=== PATIENT | female | born 1945 | race Caucasian/White ===

== ENCOUNTER 2018-04-02 12:04 | Day surgery (SDC) | payer MEDICARE ==
[~2018-04-02] VITALS: Ht 167.6 cm; Wt 63.7 kg
[~2018-04-02 12:04] MED LIST: DEXAMETHASONE SOD PHOS 4 MG/ML VIAL IV ONE; GLYCOPYRROLATE 1 MG/5 ML SYRINGE IV PUSH ONE; KETOROLAC TROMETHAMINE 30 MG/ML (IVP) VIAL IV PUSH ONE; LACTATED RINGER'S 1000 ML INJ 1,000 ML IV ONE; LIDOCAINE HCL 1% PF 5 ML SYRINGE OTHER ONE; METO25 PO; NEOSTIGMINE 5 MG/5 ML SYRINGE IV PUSH ONE; ONDANSETRON HCL 4 MG/2 ML VIAL IV ONE; PHENYLEPH/NS 1000 MCG/10 ML SYR IV ONE; PROPOFOL 200 MG/20 ML AMP IV ONE; ROCURONIUM INJ 50 MG/5 ML SYRINGE IV PUSH ONE; ST JTAB PO; ePHEDrine/NS 25 MG/5 ML SYRINGE IV ONE
[2018-04-02] MEDS ORDERED: POVIDONE IODINE 5% (ANTISEPSIS KIT) 4 APPLICATIONS EACH NARE PRN (12:45)
[2018-04-02] MEDS ORDERED: ceFAZolin 1,000 MG/NS 100 ML IV SCH ×2 (12:45)
[2018-04-02] MEDS ORDERED: LACTATED RINGER'S 1000 ML IV PRN (12:45)
[2018-04-02] MEDS ORDERED: ACETAMINOPHEN 1000 MG/100 ML 100 ML IV SCH (12:45)
[2018-04-02] MEDS ORDERED: METOPROLOL TARTRATE 25 MG TAB PO PRN (12:45)
[2018-04-02] MEDS ORDERED: CHLORHEXIDINE GLUCONATE 2 % 1 PACK (2 CLOTHS) TOPICAL PRN (12:45)
[2018-04-02] MEDS ORDERED: VANCOMYCIN 1 GM/200 ML PREMIX IV SCH (12:45)
[2018-04-02] MEDS ORDERED: SODIUM CHLORID 0.9% 500 ML IV PRN (12:45)
--- NOTE | 2018-04-02 13:22 | EKG ---
Date Performed: 04/02/2018 Time Performed: 12:43:16 PTAGE: 72 years EKG: SINUS BRADYCARDIA WITH MARKED SINUS ARRHYTHMIA LEFT ANTERIOR FASCICULAR BLOCK ABNORMAL ECG NO PREVIOUS TRACING DOCTOR: Sebastian Che Interpretating Date/Time 04/02/2018 13:22:13
[2018-04-02] MEDS ORDERED: BUPIVACAINE/EPINEPHRINE 0.25% PF 10 ML VIAL ONE (13:26)
[2018-04-02] MEDS ORDERED: URSO1TAB6 (13:32)
[2018-04-02 13:49] LABS: AUTOMATED NEUTROPHIL # 2.3 TH/MM3 (1.8-7.7); BASOPHIL % 0.9 % (0.0-2.0); EOSINOPHIL # 0.1 TH/MM3 (0-0.4); EOSINOPHIL % 1.8 % (0.0-4.0); HEMATOCRIT 39.3 % (35.0-46.0); HEMOGLOBIN 13.5 GM/DL (11.6-15.3); LYMPH % 34.2 % (9.0-44.0); LYMPHOCYTE # 1.6 TH/MM3 (1.0-4.8); MEAN CELL VOLUME 89.6 FL (80.0-100.0); MEAN CORPUSCULAR HEMOGLOBIN 30.7 PG (27.0-34.0); MEAN CORPUSCULAR HGB CONC 34.3 % (32.0-36.0); MEAN PLATELET VOLUME 8.6 FL (7.0-11.0); MONO % 12.2 % (0.0-8.0); MONOCYTE # 0.6 TH/MM3 (0-0.9); NEUT % 50.9 % (16.0-70.0); PLATELET COUNT 207 TH/MM3 (150-450); RED BLOOD COUNT 4.38 MIL/MM3 (4.00-5.30); RED CELL DISTRIBUTION WIDTH 13.5 % (11.6-17.2); WHITE BLOOD COUNT 4.6 TH/MM3 (4.0-11.0)
[2018-04-02 14:08] LABS: BICARBONATE 23.8 MEQ/L (21.0-32.0); CREATININE 0.75 MG/DL (0.50-1.00)
[2018-04-02] MEDS ORDERED: LIDOCAINE 1%/EPINEPHrine 1:100,000 SOLN 30 ML VIAL ONE (15:46)
[2018-04-02] MEDS ORDERED: LIDOCAINE HCL 1% PF 5 ML AMPULE ONE (15:47)
[2018-04-02] MEDS ORDERED: fentaNYL CITRATE 250 MCG/5 ML AMP ONE (15:58)
[2018-04-02] MEDS ORDERED: NORC5TAB PO (18:11)
--- NOTE | 2018-04-02 18:21 | HHI.PR ---
cc: Mg Donald MD Immediate Post Op Note Procedure Date: Apr 02, 2018 Pre Op Diagnosis: Incarcerated RIGHT inguinal hernia Post Op Diagnosis: Incarcerated RIGHT femoral hernia Surgeon: Mg Donald Bender Hand(s): Perry Long CFA Procedure: Reduction and repair incarcerated RIGHT femoral hernia with mesh Complications: None Specimen(s) removed: Hernia sac to pathology Estimated blood loss: 30 ml Anesthesia: General Drains: None IVF (1000 ml) Patient to: PACU Patient Condition: Good Date/Time of Procedure: SEE SURGICAL CARE RECORD Mg Donald MD Apr 02, 2018 18:21
[2018-04-02] MEDS ORDERED: MORPHINE SULFATE 4 MG/ML INJ IV PUSH PRN (18:30)
[2018-04-02] MEDS ORDERED: ONDANSETRON ODT 4 MG TAB PO PRN (18:30)
[2018-04-02] MEDS ORDERED: NALOXONE HCL 0.4 MG/ML AMP IV PUSH PRN (18:30)
[2018-04-02] MEDS ORDERED: Post-op Orders (for Pharmacy) XX ONE (18:30)
[2018-04-02] MEDS ORDERED: diphenhydrAMINE HCL 25 MG CAP PO PRN (18:30)
[2018-04-02] MEDS ORDERED: ACETAMINOPHEN/HYDROcodone 325 MG/5 MG TAB PO PRN ×2 (18:30)
[2018-04-02 19:20] VITALS: BP 109/54; PULSE 69; RESP 20; TEMP 97.8; O2SAT 95
[2018-04-02] MEDS ORDERED: DO NOT ADM ANY ANTICOAGULANT DRUGS PRN (20:45)
== END 2018-04-02 19:20 | disposition home or self-care (01) ==
LOC: HSDC 12:04
PROVIDERS: ATTEND Surgery Trauma Surgery
DX: K41.30 Unilateral femoral hernia, with obstruction, without gangrene, not specified as recurrent (principal); I48.91 Unspecified atrial fibrillation; Z01.810 Encounter for preprocedural cardiovascular examination
CPT/HCPCS: 00830; 49553; 80048; 85025; 88305; 93005; C1781; J0131; J0690; J1100; J1885; J2370; J2405; J2710; J3010; J3370; J7120